=== PATIENT | female | born 1960 | race Caucasian/White ===

== ENCOUNTER 2019-10-31 11:04 | Day surgery (SDC) | payer BC ==
[2019-10-30 14:37] VITALS: BMI 23.9
[~2019-10-31 11:04] MED LIST: Dexamethasone 20 MG/5 ML VIAL ONE; Lidocaine 1% PF 5 ML VIAL ONE; Ondansetron PF 4 MG/2 ML Vial ONE; PROPOFOL 200 MG/20 ML VIAL ONE; Ropivacaine 0.2% HCl/PF (40 MG/20 ML VIAL) ONE; Ropivacaine 0.5% HCl/PF (150 MG/30 ML VIAL) ONE; ePHEDrine/0.9% NaCl/PF SYRINGE 50 mg/10 ml ONE
[2019-10-31] MEDS ORDERED: Fentanyl 100 MCG/2 ML VIAL ONE ×3 (11:42→12:21)
[2019-10-31] MEDS ORDERED: Midazolam HCl 2 mg/2 ml Vial ONE (12:21)
[2019-10-31] MEDS ORDERED: Bupivacaine PF 0.5% 30 ML VIAL ONE (12:29)
[2019-10-31] MEDS ORDERED: Famotidine/PF 20 mg/2ml Vial ONE (12:56)
[2019-10-31] MEDS ORDERED: Ketorolac Tromethamine 30 MG/ML VIAL IVP PRN (13:33)
[2019-10-31] MEDS ORDERED: Ropivacaine 0.2% 550 ML 550 ML NERVE BLCK SCH (13:33)
[2019-10-31] MEDS ORDERED: Promethazine HCl 25 MG/ML VIAL IM PRN (13:33)
[2019-10-31] MEDS ORDERED: HYDROcodone/Acetaminophen 10/325 mg Tablet PO PRN ×2 (13:33)
[2019-10-31] MEDS ORDERED: Zolpidem Tartrate 5 MG TAB PO PRN (13:33)
[2019-10-31] MEDS ORDERED: Ondansetron PF 4 MG/2 ML Vial IVP PRN (13:33)
[2019-10-31] MEDS ORDERED: traMADol HCl 50 MG TAB PO PRN ×2 (13:33)
[2019-10-31] MEDS ORDERED: Fentanyl 100 MCG/2 ML VIAL IV PRN (13:34)
[2019-10-31] MEDS ORDERED: Acetaminophen 325 MG TAB PO PRN (13:34)
[2019-10-31] MEDS ORDERED: ePHEDrine/0.9% NaCl/PF SYRINGE 50 mg/10 ml ONE (13:51)
--- NOTE | 2019-10-31 20:14 | RAD ---
TWO VIEWS LEFT WRIST 10/31/19 PROVIDED CLINICAL HISTORY: Postop. FINDINGS/IMPRESSION: Comparison 10/25/19. Spot fluoroscopic frontal and lateral views of the left wrist demonstrate interval volar plate and sc rew fixation of the previously described distal radial fracture with resultant improved alignment. POS: GREGORY
--- NOTE | 2019-10-31 23:22 | OP ---
DATE OF PROCEDURE: 10/31/2019 PREOPERATIVE DIAGNOSIS: Left distal radius fracture ([place]), fracture of 2 fragments. POSTOPERATIVE DIAGNOSIS: Left distal radius fracture ([place]), fracture of 2 fragments. PROCEDURE PERFORMED: Open reduction and internal fixation of left distal radius fracture. ANESTHESIA: Block and general. COREMAKER MACHINE: Jessica Goetz PA-C. TOURNIQUET TIME: 37 minutes at 250 mmHg. IMPLANTS: Synthes 2.4 mm variable angle LCP 2-column plate. COMPLICATIONS: None. DRAINS: None. SPECIMEN: None. OUTCOME: Near-anatomic alignment. INDICATIONS: The patient is a 59-year-old lady status post ground level fall sustaining a distal radius fracture with significant displacement. After discussion with the patient including risks and benefits, we decided to proceed with open reduction and internal fixation. Informed consent has been obtained, I believe all questions have been answered. DESCRIPTION OF PROCEDURE: An initial block was placed and the patient was placed under general anesthesia. She was supine with the arm on an arm board. A sterile prep and drape were then performed of the left upper extremity. The limb was exsanguinated with Esmarch bandage, tourniquet inflated to 250 mmHg. A volar radial skin incision was made. After skin was sharply incised, dissection was carried down exploiting the interval between the flexor carpi radialis and brachioradialis. The neurovascular bundle was swept radially and then the pronator quadratus was released off the radial border of the distal radius and reflected to the midline revealing the underlying distal radial shaft. The fracture was reduced under direct visualization and then a K-wire was passed from the tip of the radial styloid obliquely across the fracture into the more proximal radial diaphysis for provisional fixation. Once stabilized, a 2.4 mm variable angle LCP 2-column plate was applied to the volar cortex of the distal radius and then held in place with a provisional cortical screw proximal to the fracture line. Under C-arm guidance, the plate was then adjusted for appropriate positioning. Once appropriately positioned, a total of four 2.4 mm locking screws were applied through the horizontal limb of the plate distally capturing the distal fragment. This was then followed by insertion of 2 more cortical screws proximally. Final AP and lateral C-arm images were obtained that showed christianity of radial inclination, volar tilt, and radial length. The wound was then irrigated with bulb syringe and closed in layers with 2-0 Vicryl deep and 4-0 nylon for the skin. Xeroform gauze and short-arm volar fiberglass splint were applied to the arm. Tourniquet was let down and the patient was transferred to recovery room in stable condition. There were no complications. She tolerated the procedure well. Job ID: [id number]
== END 2019-10-31 16:48 | disposition home or self-care (01) ==
LOC: SDC 11:04
PROVIDERS: ATTEND Orthopaedic Surgery
PROC: 0PSJ04Z Reposition Left Radius with Internal Fixation Device, Open Approach (ICD-10-PCS; principal; 2019-10-31)
PROC: 3E0T3BZ Introduction of Anesthetic Agent into Peripheral Nerves and Plexi, Percutaneous Approach (ICD-10-PCS; principal; 2019-10-31)
DX: S52.532A Colles' fracture of left radius, initial encounter for closed fracture (principal); G89.18 Other acute postprocedural pain; Z79.899 Other long term (current) drug therapy; Z88.6 Allergy status to analgesic agent; Z91.018 Allergy to other foods; W18.30XA Fall on same level, unspecified, initial encounter; Y92.007 Garden or yard of unspecified non-institutional (private) residence as the place of occurrence of the external cause
CPT/HCPCS: 76000; A4306; C1713; J0690; J1100; J2001; J2250; J2405; J2704; J2795; J3010; S0020; S0028